=== PATIENT | female | born 1945 | race Caucasian/White ===

== ENCOUNTER 2019-02-10 14:19 | Outpatient (CLI) | payer MEDICARE | END 2019-02-10 23:59 | disposition home or self-care (01) | LOC: CFH 14:19 | DX: N60.02 Solitary cyst of left breast (principal) | CPT/HCPCS: 76642; 77065; G0279 ==

== ENCOUNTER → 2020-03-14 | Outpatient (CLI) | payer MEDICARE | END | disposition home or self-care (01) | LOC: CFH 09:52 | PROVIDERS: ATTEND Family Medicine | DX: Z12.31 Encounter for screening mammogram for malignant neoplasm of breast (principal); N95.8 Other specified menopausal and perimenopausal disorders | CPT/HCPCS: 77067; 77080 ==

== ENCOUNTER → 2021-03-16 | Outpatient (CLI) | payer MEDICARE ==
[~2021-03-16] MED LIST: ASCO1500 PO; AZIT500T PO; CEFD300C37 PO; CHOL500045 PO; CYAN100T22 PO; FAMO20TA7 PO; METH4TAB2 PO; ZINC220C7 PO
== END | disposition home or self-care (01) ==
LOC: CFH 07:34
PROVIDERS: ATTEND Internal Medicine
DX: Z12.31 Encounter for screening mammogram for malignant neoplasm of breast (principal)
CPT/HCPCS: 77063; 77067